=== PATIENT | female | born 1980 ===

== ENCOUNTER 2024-01-29 06:14 | Day surgery (SDC) | payer BC, SELFPAY ==
[2024-01-29] VITALS (8 sets, daily range): BP systolic 123–156; BP diastolic 76–104; BMI 35.8
[2024-01-29] MEDS: NORMOSOL-R 1000 IV (07:26)
[2024-01-29] MEDS: DILAUDID 0.25 MG IV (10:16)
== END 2024-01-29 11:40 | disposition home or self-care (01) ==
LOC: SDS 06:14
PROVIDERS: ATTENDING PHYSICIAN Urology
DX: T83.110A Breakdown (mechanical) of urinary electronic stimulator device, initial encounter (principal); N30.10 Interstitial cystitis (chronic) without hematuria; M62.89 Other specified disorders of muscle; R31.29 Other microscopic hematuria; N39.3 Stress incontinence (female) (male); R32 Unspecified urinary incontinence; Y83.1 Surgical operation with implant of artificial internal device as the cause of abnormal reaction of the patient, or of later complication, without mention of misadventure at the time of the procedure
CPT/HCPCS: 64590; 64561; 72170; 76000; C1767; C1778; C1787; L8681